=== PATIENT | female | born 1980 | race Caucasian/White ===

== ENCOUNTER 2020-01-16 14:35 | Emergency (ER) | payer MEDICARE, MEDICAID ==
[~2020-01-16] VITALS: Ht 172.7 cm; Wt 125.0 kg
[2020-01-16] MEDS ORDERED: DIPHENHYDRAMINE 50 MG CAPSULE ONE (14:47)
[2020-01-16] MEDS ORDERED: FAMOTIDINE 20 MG TABLET ONE (14:47)
[2020-01-16] MEDS ORDERED: baclofen (15:00)
[2020-01-16] MEDS ORDERED: omeprazole (15:00)
[2020-01-16] MEDS ORDERED: FAMOTIDINE 20 MG TABLET PO ONE (15:00)
[2020-01-16] MEDS ORDERED: zofran (15:00)
[2020-01-16] MEDS ORDERED: DIPHENHYDRAMINE 25 MG CAPSULE PO ONE (15:00)
[2020-01-16] MEDS ORDERED: amlodipine (15:00)
[2020-01-16] MEDS ORDERED: ventolin HFA (15:00)
[2020-01-16] MEDS ORDERED: naproxen (15:00)
[2020-01-16] MEDS ORDERED: BENADRYL (15:00)
[2020-01-16] MEDS ORDERED: lyrica (15:00)
[2020-01-16] MEDS ORDERED: lisinopril (15:00)
--- NOTE | 2020-01-16 15:30 | NUR ---
LATE NOTE ENTRY DUE TO PT CARE. Pt presents to ED with c/o swelling of lower lip and throat after an unknown exposure to an allergen. Pt states she has multiple allergies to foods, incluidng strawberries, and multiple unknown allergies. Pt provided medication per [facility] and connected to NIBP cuff, continous pulse ox, and cardiac rehab nurse. Call light within reach. Pt's daughter at bedside. NADN. No needs expressed at this time.
[2020-01-16] MEDS ORDERED: IBUPROFEN 600 MG TABLET PO ONE (16:00)
[2020-01-16] MEDS ORDERED: IBUPROFEN 600 MG TABLET ONE (16:10)
[2020-01-16 16:27] VITALS: BP 115/50
--- NOTE | 2020-01-16 17:16 | NUR ---
Patient given discharge instructions and they have confirmed that they understand the instructions. Patient ambulatory with steady gait. Pt left with d/c paperwork and all personal belongings. NADN. No needs expressed.
== END 2020-01-16 17:18 ==
LOC: ED 17:12
DX: T78.3XXA Angioneurotic edema, initial encounter (principal); T78.2XXA Anaphylactic shock, unspecified, initial encounter; G89.29 Other chronic pain; I10 Essential (primary) hypertension; F17.210 Nicotine dependence, cigarettes, uncomplicated; M94.0 Chondrocostal junction syndrome [Tietze]
CPT/HCPCS: 99284; J7512; Q0163

== ENCOUNTER 2020-02-06 06:39 | Emergency (ER) | payer MEDICARE, MEDICAID ==
[~2020-02-06] VITALS: Ht 172.7 cm; Wt 137.0 kg
[~2020-02-06 06:39] MED LIST: BENADRYL; amlodipine; baclofen; lisinopril; lyrica; naproxen; omeprazole; ventolin HFA; zofran
[2020-02-06 06:48] VITALS: BP 112/79
--- NOTE | 2020-02-06 07:00 | NUR ---
PT AMBULATES TO ROOM WITH STEADY GAIT FROM TRIAGE
[2020-02-06 07:41] LABS: BASOPHILS # (AUTO) 0.09 x10^3/uL (0-0.1); BASOPHILS % (AUTO) 1 % (0-1); EOSINOPHILS # (AUTO) 0.26 x10^3/uL (0-0.4); EOSINOPHILS % (AUTO) 2 % (1-7); LYMPHOCYTES # (AUTO) 3.58 x10^3/uL (1-3.4); LYMPHOCYTES % (AUTO) 26 % (22-44); MD NO; MEAN CORPUSCULAR HEMOGLOBIN 27.2 pg (27.0-34.8); MEAN PLATELET VOLUME 7.3 fL (7.4-10.4); MONOCYTES # (AUTO) 0.34 x10^3/uL (0.2-0.8); MONOCYTES % (AUTO) 2 % (2-9); NEUTROPHILS # (AUTO) 9.62 x10^3/uL (1.8-6.8); NEUTROPHILS % (AUTO) 69 % (42-75); PLATELET COUNT 324 x10^3/uL (130-400); RED BLOOD COUNT 4.49 x10^6/uL (3.82-5.3)
[2020-02-06 07:53] LABS: ANION GAP 5 mmol/L (5-15); CALCIUM 8.5 mg/dL (8.5-10.1); CHLORIDE 110 mmol/L (98-107); CREATININE 0.65 mg/dL (0.55-1.02)
--- NOTE | 2020-02-06 08:55 | NUR ---
PT D/C WITH D/C SUMMARY. PT DENIES ANY OTHER NEEDS PERTAINING TO THIS VISIT. PT AMBULATES TO AMBULANCE BAY WITH STEADY GAIT FOR D/C HOME.
== END 2020-02-06 08:57 | disposition home or self-care (01) ==
LOC: ED 07:01
DX: B34.9 Viral infection, unspecified (principal)
CPT/HCPCS: 36415; 71045; 80048; 85025; 99284